=== PATIENT | male | born 1975 | race African-American/Black ===

== ENCOUNTER 2017-04-08 09:26 | Emergency (ER) | payer OTHER ==
[~2017-04-08] VITALS: Wt 67.5 kg
[2017-04-08] MEDS ORDERED: KETOROLAC 30 MG INJ IV STA (10:06)
[2017-04-08 10:45] LABS: ADD UMIC YES; UR ASCORBIC ACID NEGATIVE (NEGATIVE); UR BACTERIA FEW /HPF (NONE SEEN); UR BILIRUBIN (Dip) NEGATIVE (NEGATIVE); UR BLOOD (Dip) NEGATIVE (NEGATIVE); UR CLARITY SLIGHTLY CLOUDY (CLEAR); UR COLOR YELLOW (YELLOW); UR GLUCOSE (Dip) 1+ mg/dL (NEGATIVE); UR KETONES (Dip) TRACE mg/dL (NEGATIVE); UR LEUKOCYTE ESTERASE (Dip) NEGATIVE Leu/ul (NEGATIVE); UR MUCUS FEW /HPF (NONE SEEN); UR NITRITE (Dip) NEGATIVE (NEGATIVE); UR RBC 1 /HPF (0-5); UR SPECIFIC GRAVITY (Dip) 1.017 (1.003-1.030); UR TOTAL PROTEIN (Dip) 1+ mg/dl (NEGATIVE); UR UROBILINOGEN (Dip) NEGATIVE (NEGATIVE)
--- NOTE | 2017-04-08 11:32 | RADRPT ---
PROCEDURE: CT Abdomen and pelvis without contrast. CLINICAL INDICATION: Abdominal Pain TECHNIQUE: CT scan of the abdomen and pelvis with contrast was performed on a multidetector high-r esolution CT scan. . Coronal and sagittal reformatted images were obtained from the axial source i mages. Standard CT scan of the abdomen pelvis without contrast protocols were performed. The total exam CTDI equals 8.93 mGy and the total exam DLP equals 485.7 mGy-cm. One or more of the following dose reduction techniques were used: - Automated exposure control. - Adjustment of the mA and/or kV according to patient size. Use of iterative reconstruction technique. COMPARISON: None. FINDINGS: The kidneys are normal in size without calcified renal calculi, hydronephrosis or intra renal masses bilaterally. No evidence of ureteral calcified calculi. The urinary bladder is partially contract ed. There is moderate circumferential urinary bladder wall thickening which may relate to lack of o ptimal distension however cystitis cannot be excluded. Prostate is unremarkable. The appendix is unremarkable. There is gastric wall thickening and rule out gastritis. The remaind er of the stomach is unremarkable. The small large bowel are unremarkable. The gallbladder is unremarkable without evidence of biliary ductal dilation. The liver spleen pancr eas and adrenal glands are unremarkable. There is no evidence of intra-abdominal free air, free flu id, abscesses or lymphadenopathy. The aorta is unremarkable. Lung bases are unremarkable. The osseous structures are unremarkable. The lower thoracic abdominal and pelvic zuniga are unremarkable. IMPRESSION: 1. Gastric wall thickening and rule out gastritis. No other evidence of gastrointestinal disease. 2. No evidence of calcified urinary calculi or obstructive uropathy. Circumferential urinary bladd er wall thickening may relate to lack of optimal distension however cystitis cannot be excluded. 3. No evidence of shallow free air fluid abscesses or lymphadenopathy. RPTAT:AAJJ Physician Sheila Date Time Electronically viewed and signed by Physician Sheila on 04/08/2017 11:32 BM/
--- NOTE | 2017-04-08 11:44 | ERD ---
ER Documentation Chief Complaint Date/Time DATE: 04/08/17 TIME: 11:37 Chief Complaint LOWER BACK PAIN, ONSET 6 MONTHS, ON AND OFF HPI This 41-year-old male presents to the emergency department today complaining of low back pain that is been off and on for the past 6 months and worse for the past 2 weeks. She states that they also feels some pressure in her pelvic area. States that they saw their doctor at [facility] who sent them to get a renal ultrasound and was then referred to a urologist. He stated that the urologist wants him to get a CT scan. States he is here because of pain. Denies any fevers or chills. Denies any dysuria. ROS All systems reviewed and are negative except as per history of present illness. Medications Home Meds Active Scripts Naproxen* (Naprosyn*) 500 Mg Tablet, 500 MG PO BID Y for PAIN AND/OR INFLAMMATION, #30 TAB Prov:NOEMY CUELLAR PA-C 04/08/17 Allergies Allergies: Coded Allergies: No Known Allergy (Unverified , 04/08/17) PMhx/Soc Medical and Surgical Hx: pt denies Medical Hx, pt denies Surgical Hx Hx Alcohol Use: No Hx Substance Use: No Hx Tobacco Use: No Smoking Status: Never smoker Physical Exam Vitals Vital Signs Date Time Temp Pulse Resp B/P Pulse Ox O2 Delivery O2 Flow Rate FiO2 04/08/17 09:31 99.3 85 17 136/92 99 Physical Exam Const: No acute distress Head: Atraumatic Eyes: Normal Conjunctiva ENT: Normal External Ears, Nose and Mouth. Neck: Full range of motion..~ No meningismus. Resp: Clear to auscultation bilaterally Cardio: Regular rate and rhythm, no murmurs Abd: Soft, mild suprapubic tenderness, non distended. Normal bowel sounds. No specific tenderness at [place] Skin: No petechiae or rashes Back: Bilateral paraspinal tenderness. No CVA tenderness. Full active range of motion. Pulses 2+. Negative straight leg raise. Ext: No cyanosis, or edema Neur: Awake and alert Psych: Normal Mood and Affect Results 24 hrs Laboratory Tests Test 04/08/17 10:12 Urine Color YELLOW Urine Clarity SLIGHTLY CLOUDY Urine pH 5.0 Urine Specific [place] 1.017 Urine Ketones TRACEmg/dL Urine Nitrite NEGATIVEmg/dL Urine Bilirubin NEGATIVEmg/dL Urine Urobilinogen NEGATIVEmg/dL Urine Leukocyte Esterase NEGATIVELeu/ul Urine Microscopic RBC 1/HPF Urine Microscopic WBC 0/HPF Urine Bacteria FEW/HPF Urine Mucus FEW/HPF Urine Hemoglobin NEGATIVEmg/dL Urine Glucose 1+mg/dL Urine Total Protein 1+mg/dl Current Medications Medications (Trade) Dose Ordered Sig/Dhara Route PRN Reason Start Time Stop Time Status Last Admin Dose Admin Ketorolac Tromethamine (Toradol) 30 mg ONCE STAT IV 04/08/17 10:06 04/08/17 10:10 DC 04/08/17 10:16 DIAGNOSTIC IMAGING REPORT Patient: MOLLY FARRAR : 1975 Age: 41 Sex: M MR #: [id number] DOS: 04/08/17 1006 Ordering MD: NOEMY CUELLAR PA-C Location: [facility] Room/Bed: PROCEDURE: CT Abdomen and pelvis without contrast. CLINICAL INDICATION: Abdominal Pain TECHNIQUE: CT scan of the abdomen and pelvis with contrast was performed on a multidetector high-resolution CT scan. . Coronal and sagittal reformatted images were obtained from the axial source images. Standard CT scan of the abdomen pelvis without contrast protocols were performed. The total exam CTDI equals 8.93 mGy and the total exam DLP equals 485.7 mGy-cm. One or more of the following dose reduction techniques were used: - Automated exposure control. - Adjustment of the mA and/or kV according to patient size. Use of iterative reconstruction technique. COMPARISON: None. FINDINGS: The kidneys are normal in size without calcified renal calculi, hydronephrosis or intra renal masses bilaterally. No evidence of ureteral calcified calculi. The urinary bladder is partially contracted. There is moderate circumferential urinary bladder wall thickening which may relate to lack of optimal distension however cystitis cannot be excluded. Prostate is unremarkable. The appendix is unremarkable. There is gastric wall thickening and rule out gastritis. The remainder of the stomach is unremarkable. The small large bowel are unremarkable. The gallbladder is unremarkable without evidence of biliary ductal dilation. The liver spleen pancreas and adrenal glands are unremarkable. There is no evidence of intra-abdominal free air, free fluid, abscesses or lymphadenopathy. The aorta is unremarkable. Lung bases are unremarkable. The osseous structures are unremarkable. The lower thoracic abdominal and pelvic zuniga are unremarkable. IMPRESSION: 1. Gastric wall thickening and rule out gastritis. No other evidence of gastrointestinal disease. 2. No evidence of calcified urinary calculi or obstructive uropathy. Circumferential urinary bladder wall thickening may relate to lack of optimal distension however cystitis cannot be excluded. 3. No evidence of shallow free air fluid abscesses or lymphadenopathy. RPTAT:AAJJ Physician Sheila Date Time Electronically viewed and signed by Loree Kwok Physician on 04/08/2017 11:32 BM/ CC: NOEMY CUELLAR PA-C Procedures/[facility] This 41-year-old male who presents the emergency department today complaining of low back pain for the past 6 months worse over the past couple of days. Patient had seen his primary care doctor and was referred for a renal ultrasound that was done on March 27, 2017 that showed mild bilateral hydronephrosis and otherwise unremarkable retroperitoneal ultrasound. He was then referred to a urologist who he has seen and the urologist wanted to obtain a CT scan. Patient states that he was here in the emergency department due to too much pain. UA shows negative leukocyte esterase negative nitrites negative for hematuria evidence of small amount of glucose and trace ketones. CT abdomen pelvis noncontrast shows gastric wall thickening which may be related to gastritis however there is no other evidence of gastrointestinal disease. There is no evidence of calcified urinary calculi or obstructive uropathy. There is circumferential urinary bladder wall thickening that may relate to lack of optimal distention however cystitis cannot be excluded. There is no evidence of shallow free air or abscesses or lymphadenopathy. Prostate is unremarkable. Kidneys are normal in size without calcified calculi hydronephrosis or intrarenal masses bilaterally. Patient's back pain at this time may be musculoskeletal however it appears to be chronic at this time. Low suspicion for acute fracture dislocation. Low suspicion for cauda equina or abscess. Patient also has evidence of possible cystitis with no evidence of urinary tract infection. I will not treat the patient for this at this time. I have explained the results to the patient. He may return back to his primary care doctor or urology specialist. I have also explained to him that he may benefit from eval by research and development specialist or physical therapy. Patient did actually indicate in conversation that his doctor tried to send him to physical therapy but he did not want to go as he "thought it was a waste of time". I have encouraged him to go. At this time the patient is stable for discharge and outpatient management. Patient should follow up with their PCP in the next 1-2 days. They may return to the emergency department sooner for any persistent or worsening of symptoms. Patient understood and agreed with the plan. Departure Diagnosis: Primary Impression: Back pain Back pain location: low back pain Chronicity: chronic Back pain laterality : bilateral Sciatica presence: without sciatica Qualified Code: M54.5 - Chronic bilateral low back pain without sciatica Condition: NOEMY Thomas PA-C Apr 08, 2017 11:44
[2017-04-08] MEDS ORDERED: NAPR-260 PO (11:51)
== END 2017-04-08 12:31 | disposition home or self-care (01) ==
LOC: FTE 09:26
DX: M54.5 Low back pain (principal)
CPT/HCPCS: 74176; 81001; 96374; J1885; Z7502

== ENCOUNTER 2018-02-16 07:17 | Day surgery (SDC) | END 2018-02-16 12:05 | disposition home or self-care (01) ==

== ENCOUNTER 2019-06-23 11:43 | Emergency (ER) | payer OTHER ==
[~2019-06-23] VITALS: Ht 165.1 cm; Wt 75.3 kg
[~2019-06-23 11:43] MED LIST: ACET500C5 PO; CYCL10TA7 PO; EFAV1TAB PO; PREM125 PO; SPIR25TA PO
[2019-06-23 12:05] VITALS: BP 126/78; PULSE 89; RESP 20; Ht 165.1 cm; Wt 75.3 kg
[2019-06-23] MEDS ORDERED: ACETAMINOPHEN 325 MG TAB PO ONE (12:30)
== END 2019-06-23 14:52 | disposition home or self-care (01) ==
LOC: FTE 11:43
DX: M54.5 Low back pain (principal); G89.29 Other chronic pain; I10 Essential (primary) hypertension
CPT/HCPCS: 74176; 80053; 81001; 85025; Z7502; Z7610